=== PATIENT | male | born 2000 | race Caucasian/White ===

== ENCOUNTER 2021-09-20 00:44 | Emergency (ER) | payer OTHER ==
[2021-09-20 01:32] LABS: HGB 16.8 g/dl (13.2-18.0); MCH 32.9 pg (25.0-31.0); MCV 93.9 fL (78.0-100.0); MPV 9.6 fL (6.0-9.5); RBC 5.11 M/uL (4.70-6.00); RDW 11.5 % (11.5-14.0); WBC 6.9 K/uL (4.0-10.5)
[2021-09-20 02:01] LABS: BUN/CREAT RATIO (CALC) 15.7 RATIO; CREATININE 1.08 mg/dL (0.67-1.17); POTASSIUM 3.8 mmol/L (3.5-5.1)
== END 2021-09-20 02:47 | disposition home or self-care (01) ==
LOC: FER 00:44
PROVIDERS: Emergency Medicine
DX: R00.2 Palpitations (principal); R07.89 Other chest pain
CPT/HCPCS: 36415; 71045; 80048; 84443; 84484; 85379